=== PATIENT | female | born 1990 | race African-American/Black ===

== ENCOUNTER 2018-06-21 04:07 | Emergency (ER) | payer SELFPAY ==
[~2018-06-21] VITALS: Ht 167.6 cm; Wt 68.0 kg
[2018-06-21] MEDS ORDERED: PREDNISONE10 M2 PO (04:22)
[2018-06-21 04:24] VITALS: BP 109/66
[2018-06-21] MEDS ORDERED: PROMETHAZINE-C118 M1 ORAL (04:38)
--- NOTE | 2018-06-21 04:39 | Emergency Room Report ---
History of Present Illness General Chief Complaint: Upper Respiratory Illness Source: Patient Present Illness HPI Is a 27-year-old female with recent diagnosis of lupus. She is being weaned from high-dose steroid. She presents with chief complaint of a cough that has been ongoing for about a month. She has seen by her primary care doctor and an ER and [facility]. She is currently taking albuterol and steroid inhaler. She also finished a course of Z-Jabier about 3 weeks ago. Not improving. Also taking Zyrtec for allergies. Cough is nonproductive in nature. No fever chills. No nausea no vomiting. Worse with lying flat. Worse with inspiration. She was given guaifenesin 3 days ago but said she is allergic to that. Allergies: Coded Allergies: GUAIFENESIN (Verified Allergy, Unknown, 06/21/18) Patient History Past Medical History: see triage record, old chart reviewed Past Surgical History: none Pertinent Family History: none Social History: Denies: smoking Last Menstrual Period: today Now: No Immunizations: other Reviewed Nursing Documentation: PMH: Agreed; PSxH: Agreed Nursing Documentation-PMH Hx Cardiac Problems: Yes - NASH Hx COPD: Yes - BRONCHITOUS Review of Systems Eye: Denies: eye pain, blurred vision ENT: Denies: ear pain, nose congestion, throat swelling Respiratory: Reports: cough; Denies: shortness of breath Cardiovascular: Denies: chest pain, palpitations Gastrointestinal: Denies: abdominal pain, diarrhea, nausea, vomiting Musculoskeletal: Denies: back pain, joint pain Skin: Denies: rash Neurological: Denies: headache, numbness Endocrine: Denies: increased thirst, increased urine Hematologic/Lymphatic: Denies: easy bruising All Other Systems: negative except mentioned in HPI Physical Exam Vital Signs Date Time Temp Pulse Resp B/P (MAP) Pulse Ox O2 Delivery O2 Flow Rate FiO2 06/21/18 04:12 98.6 96 18 109/66 99 Room Air 06/21/18 04:24 99 vitals ranulfo Sp02 EP Interpretation: reviewed, normal General Appearance: well appearing, no apparent distress, alert Head: normocephalic, atraumatic Eyes: bilateral eye PERRL, bilateral eye EOMI ENT: hearing grossly normal, normal pharynx Neck: full range of motion, supple, no meningismus Respiratory: chest non-tender, lungs clear, normal breath sounds Cardiovascular #1: regular rate, rhythm, no murmur Gastrointestinal: normal bowel sounds, non tender, no mass, no organomegaly, no bruit, non-distended Musculoskeletal: back normal, gait/station normal, normal range of motion Psychiatric: mood/affect normal Skin: warm/dry Medical Decision Making Diagnostic Impression: Primary Impression: Bronchitis ER Course Patient with a cough for a month. This could be allergy versus autoimmune disease versus viral illness. Could be also inflammatory process. She had 2 chest x-rays are negative. She has sinus diagnostic study was negative also. I see no evidence of pneumonia, ACS, PE, dissection to name a few. We'll discharge home. If not better, may need referred to see a director of regulatory affairs. Last Vital Signs Date Time Temp Pulse Resp B/P (MAP) Pulse Ox O2 Delivery O2 Flow Rate FiO2 06/21/18 04:24 96 18 Room Air 99 06/21/18 04:24 98.6 109/66 99 Status: unchanged Disposition: HOME, SELF-CARE Condition: Stable Scripts Codeine/Promethazine Hcl* (PROMETHAZINE-CODEINE SYRUP*) 118 Ml Syrup 5 ML ORAL Q6H PRN for For Cough, #240 ML 0 Refills Prov: Johny Avila MD 06/21/18 Additional Instructions: Follow-up with your doctor in 7-14 days. Return if symptom worsen. You may need a referral to see a director of regulatory affairs if not better. Johny Avila MD Jun 21, 2018 04:39
[2018-06-21 04:43] VITALS: BP 112/64
[2018-06-21 04:44] VITALS: BP 109/66
== END 2018-06-21 04:53 | disposition home or self-care (01) ==
LOC: EMR 04:41
DX: J20.9 Acute bronchitis, unspecified (principal); Z88.8 Allergy status to other drugs, medicaments and biological substances
CPT/HCPCS: 99282